=== PATIENT | female | born 1965 | race Caucasian/White ===

== ENCOUNTER 2016-11-08 12:47 | Emergency (ER) | payer BC, OTHER ==
[~2016-11-08] VITALS: Ht 154.9 cm; Wt 59.4 kg
[~2016-11-08 12:47] MED LIST: DIAZ2 PO
[2016-11-08 12:52] VITALS: BP 152/97; PULSE 88; RESP 16; TEMP 98.8; O2SAT 98
[2016-11-08] MEDS ORDERED: ZOLO25TA PO (13:13)
[2016-11-08] MEDS ORDERED: LORA-373 PO (13:13)
[2016-11-08] MEDS ORDERED: SODIUM CHLORIDE 0.9% FLUSH 10 ML FLUSH IV FLUSH PRN (13:30)
--- NOTE | 2016-11-08 13:38 | PD ---
HPI Chief Complaint: Abdominal Pain Time Seen by Provider: 13:07 Travel History International Travel<30 days: No Contact w/Intl Traveler<30days: No Traveled to known affect area: No History of Present Illness HPI Patient complains of pain in the right lower quadrant. Radiates toward the right low back. Duration 5 days. Severity is moderate. She's been playing a lot of golf lately and initially thought she strained a muscle in the abdominal wall but now thinks it may be something else. No vomiting or diarrhea or fever. Pain is not worse with eating. No vaginal bleeding or discharge or urinary complaints. No alleviating factors. PFSH Past Medical History Medical History: Denies Significant Hx Tetanus Vaccination: < 5 Years Influenza Vaccination: No ?: Not LMP: July Past Surgical History Cholecystectomy: Yes Gynecologic Surgery: Yes (Ectopic) Social History Alcohol Use: Yes (Occ.) Tobacco Use: No Substance Use: No Allergies-Medications (Allergen,Severity, Reaction): Coded Allergies: Codeine (Verified Allergy, Severe, PT STATES NOT ALLERGIC, 11/08/16) Reported Meds & Prescriptions Reported Meds & Active Scripts Active Reported Zoloft (Sertraline HCl) 25 Mg Tab 25 Mg PO DAILY Lorazepam 0.5 Mg Tab 0.5 Mg PO Q8H PRN Review of Systems General / Constitutional: No: Fever Eyes: No: Visual changes HENT: No: Headaches Cardiovascular: No: Chest Pain or Discomfort Respiratory: No: Shortness of Breath Gastrointestinal: Positive: Abdominal Pain Genitourinary: Positive: Pelvic Pain, No: Dysuria Musculoskeletal: No: Pain Skin: No Rash Neurologic: No: Weakness Psychiatric: No: Depression Endocrine: No: Polydipsia Hematologic/Lymphatic: No: Easy Bruising Physical Exam Narrative GENERAL: Well-nourished, well-developed patient with right lower quadrant pain . SKIN: Focused skin assessment reveals no rash and nodules. Skin is Warm and dry. HEAD: Atraumatic. Normocephalic. EYES: Pupils equal and round. No scleral icterus. No injection or drainage. ENT: No nasal bleeding or discharge. Mucous membranes pink and moist. NECK: Trachea midline. No JVD. CARDIOVASCULAR: Regular rate and rhythm. No murmur appreciated. RESPIRATORY: No accessory muscle use. Clear to auscultation. Breath sounds equal bilaterally. GASTROINTESTINAL: Abdomen soft, right lower quadrant has some tenderness without rebound or guarding, nondistended. Hepatic and splenic margins not palpable. MUSCULOSKELETAL: No obvious deformities. No clubbing. No cyanosis. No edema. NEUROLOGICAL: Awake and alert. No obvious cranial nerve deficits. Motor grossly within normal limits. Normal speech. PSYCHIATRIC: Appropriate mood and affect; insight and judgment normal. Data Data Last Documented VS Vital Signs Date Time Temp Pulse Resp B/P Pulse Ox O2 Delivery O2 Flow Rate FiO2 11/08/16 12:52 98.8 88 16 152/97 98 Orders Complete Blood Count With Diff (11/08/16 13:26) Comprehensive Metabolic Panel (11/08/16 13:26) Lipase (11/08/16 13:26) Prothrombin Time / Inr (Pt) (11/08/16 13:26) Act Partial Throm Time (Ptt) (11/08/16 13:26) Urinalysis - C+S If Indicated (11/08/16 13:26) Ct Abd/Pel W Iv Contrast(Rout) (11/08/16 13:26) Iv Access Insert/Monitor (11/08/16 13:26) NPO (11/08/16 13:26) Sodium Chloride 0.9% Flush (Ns Flush) (11/08/16 13:30) Ed Urine Pregnancytest Poc (11/08/16 13:26) Urine Culture (11/08/16 14:10) Iohexol 350 Inj (Omnipaque 350 Inj) (11/08/16 14:35) Labs Laboratory Tests Test 11/08/16 11/08/16 14:10 14:16 Urine Collection Type CLEAN CATCH Urine Color STRAW Urine Turbidity SLIGHT Urine pH 5.5 Urine Specific [place] 1.005 Urine Protein NEG mg/dL Urine Glucose (UA) NEG mg/dL Urine Ketones NEG mg/dL Urine Occult Blood TRACE Urine Nitrite NEG Urine Bilirubin NEG Urine Leukocyte Esterase LARGE Urine RBC 4-9 /hpf Urine WBC 50-99 /hpf Urine Squamous Epithelial 0-5 /hpf Cells Urine Bacteria FEW /hpf Microscopic Urinalysis Comment CULTURE INDICATED Urine Collection Time 14:10 White Blood Count 8.2 TH/MM3 Red Blood Count 4.53 MIL/MM3 Hemoglobin 13.7 GM/DL Hematocrit 42.0 % Mean Corpuscular Volume 92.7 FL Mean Corpuscular Hemoglobin 30.4 PG Mean Corpuscular Hemoglobin 32.7 % Concent Red Cell Distribution Width 12.9 % Platelet Count 271 TH/MM3 Mean Platelet Volume 7.8 FL Neutrophils (%) (Auto) 61.0 % Lymphocytes (%) (Auto) 30.3 % Monocytes (%) (Auto) 6.3 % Eosinophils (%) (Auto) 1.8 % Basophils (%) (Auto) 0.6 % Neutrophils # (Auto) 5.1 TH/MM3 Lymphocytes # (Auto) 2.5 TH/MM3 Monocytes # (Auto) 0.5 TH/MM3 Eosinophils # (Auto) 0.1 TH/MM3 Basophils # (Auto) 0.0 TH/MM3 CBC Comment DIFF FINAL Differential Comment Prothrombin Time 10.2 SEC Prothromb Time International 0.9 RATIO Ratio Activated Partial 23.4 SEC Thromboplast Time Sodium Level 140 MEQ/L Potassium Level 3.6 MEQ/L Chloride Level 104 MEQ/L Carbon Dioxide Level 28.4 MEQ/L Anion Gap 8 MEQ/L Blood Urea Nitrogen 16 MG/DL Creatinine 0.62 MG/DL Estimat Glomerular Filtration 102 ML/MIN Rate Random Glucose 86 MG/DL Calcium Level 8.9 MG/DL Total Bilirubin 0.2 MG/DL Aspartate Amino Transf 27 U/L (AST/SGOT) Alanine Aminotransferase 39 U/L (ALT/SGPT) Alkaline Phosphatase 77 U/L Total Protein 7.0 GM/DL Albumin 3.9 GM/DL Lipase 128 U/L [facility] Medical Decision Making Medical Screen Exam Complete: Yes Emergency Medical Condition: Yes Medical Record Reviewed: Yes Differential Diagnosis Appendicitis, colitis, muscle tear Narrative Course I have reviewed the patient's electronic medical record. IV placed CBC is normal Metabolic profile is normal LFTs are normal Lipase is normal Urinalysis is clean Urine is negative CT of abdomen and pelvis is normal Entirety of this extensive workup is negative. She may have torn abdominal wall muscle otherwise her abdominal pain is nonspecific but she stable for outpatient follow-up. Tramadol written and she has a primary care physician to follow up with Diagnosis Primary Impression: Abdominal pain Qualified Code: R10.31 - Right lower quadrant abdominal pain Additional Instructions: The patient was advised to follow up with their physician and return if they worsen. The patient was warned about potential sedation for the medications they will receive on prescription. Med/Other Pt SpecificInfo: Prescription(s) given Scripts Tramadol 50 Mg Tab50 Mg PO Q6H PRN (PAIN) #20 TAB Ref 0 Prov:Eulogio Rodriguez MD 11/08/16 Disposition: 01 DISCHARGE HOME Condition: Stable Eulogio Rodriguez MD November 08, 2016 13:38
[2016-11-08 14:25] LABS: AUTOMATED NEUTROPHIL # 5.1 TH/MM3 (1.8-7.7); BASOPHIL % 0.6 % (0.0-2.0); EOSINOPHIL # 0.1 TH/MM3 (0-0.4); EOSINOPHIL % 1.8 % (0.0-4.0); HEMO FLAGS DIFF FINAL; LYMPH % 30.3 % (9.0-44.0); LYMPHOCYTE # 2.5 TH/MM3 (1.0-4.8); MEAN CELL VOLUME 92.7 FL (80.0-100.0); MEAN CORPUSCULAR HEMOGLOBIN 30.4 PG (27.0-34.0); MEAN CORPUSCULAR HGB CONC 32.7 % (32.0-36.0); MONO % 6.3 % (0.0-8.0); PLATELET COUNT 271 TH/MM3 (150-450); RED BLOOD COUNT 4.53 MIL/MM3 (4.00-5.30); RED CELL DISTRIBUTION WIDTH 12.9 % (11.6-17.2); WHITE BLOOD COUNT 8.2 TH/MM3 (4.0-11.0)
[2016-11-08 14:26] LABS: BLOOD, URINE TRACE (NEG); GLUCOSE,URINE NEG (NEG); KETONE, URINE NEG (NEG); NITRITE,URINE NEG (NEG); PH, URINE 5.5 (5.0-8.5)
[2016-11-08 14:32] LABS: METHOD OF COLLECTION CLEAN CATCH; URINE COLOR STRAW (YELLW/STRAW)
[2016-11-08 14:33] LABS: BACTERIA, URINE FEW /hpf; COMMENT (UR) CULTURE INDICATED; CULTURE IF INDICATED CULTURE INDICATED; SQUAMOUS EPITHELIAL CELL URINE 0-5 /hpf (0-5)
[2016-11-08 14:35] LABS: CHLORIDE 104 MEQ/L (98-107); POTASSIUM 3.6 MEQ/L (3.5-5.1); SODIUM (NA) 140 MEQ/L (136-145)
[2016-11-08] MEDS ORDERED: IOHEXOL 350 MG/ML 10 ML VIAL (for RAD DIAG) IV ONE (14:35)
[2016-11-08 14:39] LABS: ANION GAP 8 MEQ/L (5-15); APTT (PATIENT) 23.4 SEC (24.3-30.1); BICARBONATE 28.4 MEQ/L (21.0-32.0); BLOOD UREA NITROGEN 16 MG/DL (7-18); INTERNATIONAL NORMALIZED RATIO 0.9 RATIO; PROTHROMBIN TIME - PATIENT 10.2 SEC (9.8-11.6)
[2016-11-08 14:42] LABS: ALT (GPT) 39 U/L (10-53); AST (GOT) 27 U/L (15-37); GLOMERULAR FILTRATION RATE 102 ML/MIN (>89)
[2016-11-08 14:43] LABS: TOTAL BILIRUBIN ADULT 0.2 MG/DL (0.2-1.0)
[2016-11-08 14:45] LABS: ALKALINE PHOSPHATASE 77 U/L (45-117)
--- NOTE | 2016-11-08 15:04 | RADHPO ---
EXAM DATE/TIME: 11/08/2016 14:25 [facility] COMPARISON: No previous studies available for comparison. INDICATIONS : Right lower quadrant pain. IV CONTRAST: 80 cc Omnipaque 350 (iohexol) IV ORAL CONTRAST: No oral contrast ingested. RADIATION DOSE: 6.57 CTDIvol (mGy) MEDICAL HISTORY : None SURGICAL HISTORY : Cholecystectomy. ENCOUNTER: Initial ACUITY: 4 - 6 days PAIN SCALE: 10/10 LOCATION: Right lower quadrant TECHNIQUE: Volumetric scanning of the abdomen and pelvis was performed. Using automated exposure control and ad justment of the mA and/or kV according to patient size, radiation dose was kept as low as reasonably achievable to obtain optimal diagnostic quality images. FINDINGS: LOWER LUNGS: The visualized lower lungs are clear. LIVER: Homogeneous density without lesion. There is mild dilation of the biliary tree. Cholecystectomy. SPLEEN: Normal size without lesion. PANCREAS: Within normal limits. KIDNEYS: Normal in size and shape. There is no mass, stone or hydronephrosis. ADRENAL GLANDS: Within normal limits. VASCULAR: There is no aortic aneurysm. BOWEL/MESENTERY: The stomach, small bowel, and colon demonstrate no acute abnormality. Normal appendix. There is no fr ee intraperitoneal air or fluid. ABDOMINAL WALL: Within normal limits. RETROPERITONEUM: There is no lymphadenopathy. BLADDER: No wall thickening or mass. REPRODUCTIVE: Within normal limits. INGUINAL: There is no lymphadenopathy or hernia. MUSCULOSKELETAL: Within normal limits for patient age. CONCLUSION: 1. No acute inflammatory process. 2. Normal appendix. 3. Status post cholecystectomy. Pipe Kowalski MD on November 08, 2016 at 14:59 Board Certified Radiologist. This report was verified electronically.
[2016-11-08 15:45] VITALS: BP 130/83; PULSE 75; RESP 16; O2SAT 100
[2016-11-08] MEDS ORDERED: TRAM50TA PO (15:48)
== END 2016-11-08 16:00 | disposition home or self-care (01) ==
LOC: PHED 12:47
DX: R10.31 Right lower quadrant pain (principal); R82.99 Other abnormal findings in urine; Z79.899 Other long term (current) drug therapy
CPT/HCPCS: 74177; 80053; 81001; 83690; 84703; 85025; 85610; 85730; 87086; 99284; Q9967

== ENCOUNTER 2017-07-30 01:27 | Observation (INO) | payer BC, OTHER ==
[~2017-07-30] VITALS: Ht 154.9 cm; Wt 56.5 kg
[2017-07-30] VITALS (10 sets, daily range): BP systolic 145–183; BP diastolic 90–100; PULSE 86–100; RESP 17–20; TEMP 98.2–98.3; O2SAT 97–100
[~2017-07-30 01:27] MED LIST changes: -DIAZ2 PO; +LORA0.5T PO; +TRAM50TA PO; +ZOLO25TA PO
[2017-07-30] MEDS ORDERED: SODIUM CHLORIDE 0.9% FLUSH 10 ML FLUSH IVF PRN (01:45)
[2017-07-30 01:50] LABS: AUTOMATED NEUTROPHIL # 6.2 TH/MM3 (1.8-7.7); BASOPHIL # 0.1 TH/MM3 (0-0.2); BASOPHIL % 0.8 % (0.0-2.0); EOSINOPHIL % 0.4 % (0.0-4.0); HEMATOCRIT 46.1 % (35.0-46.0); HEMOGLOBIN 15.2 GM/DL (11.6-15.3); LYMPH % 20.3 % (9.0-44.0); LYMPHOCYTE # 1.7 TH/MM3 (1.0-4.8); MEAN CELL VOLUME 93.3 FL (80.0-100.0); MEAN CORPUSCULAR HEMOGLOBIN 30.7 PG (27.0-34.0); MEAN CORPUSCULAR HGB CONC 32.9 % (32.0-36.0); MEAN PLATELET VOLUME 7.4 FL (7.0-11.0); MONO % 6.9 % (0.0-8.0); MONOCYTE # 0.6 TH/MM3 (0-0.9); NEUT % 71.6 % (16.0-70.0); PLATELET COUNT 353 TH/MM3 (150-450); RED BLOOD COUNT 4.94 MIL/MM3 (4.00-5.30); RED CELL DISTRIBUTION WIDTH 12.4 % (11.6-17.2); WHITE BLOOD COUNT 8.6 TH/MM3 (4.0-11.0)
[2017-07-30 02:00] LABS: CHLORIDE 102 MEQ/L (98-107); SODIUM (NA) 136 MEQ/L (136-145)
[2017-07-30] MEDS ORDERED: MECL-62 PO (02:03)
[2017-07-30] MEDS ORDERED: LORA2TAB7 PO (02:03)
[2017-07-30 02:04] LABS: ALBUMIN 4.5 GM/DL (3.4-5.0); BLOOD UREA NITROGEN 13 MG/DL (7-18); CALCIUM 9.3 MG/DL (8.5-10.1); GLUCOSE,RANDOM 107 MG/DL (74-106); LIPASE 124 U/L (73-393); PROTHROMBIN TIME - PATIENT 10.6 SEC (9.8-11.6)
--- NOTE | 2017-07-30 02:06 | PD ---
HPI Chief Complaint: Chest Pain Time Seen by Provider: 01:34 Travel History International Travel<30 days: No Contact w/Intl Traveler<30days: No Traveled to known affect area: No History of Present Illness HPI 51-year-old female presents to the emergency department from home by EMS transport for complaint of chest pain. Patient also complains of abdominal discomfort poor appetite nausea and feeling ill 3 days. Patient is diagnosed with hypertension but reportedly has been off of her blood pressure medication for approximately 2-3 months. Patient has been seen by her primary care provider in the antrum within the past month. Patient also has history of anxiety and is prescribed lorazepam but states the last time she took a dose lorazepam it made her feel anxious that she discontinued this medication as well. Patient has discontinued use of her benzodiazepine within the last 3-4 days. Patient is also prescribed phentermine for weight loss. Patient has been taking this intermittently. Patient states today she had poor oral intake and I was able to consume a small amount of soup. Patient states that she and her both like they might have the flu but she denies having any fever. Patient has had myalgias and arthralgias. Patient's had no vomiting no generalized abdominal pain and no diarrhea. Patient does not report any cough congestion rhinorrhea or sore throat. Patient states her chest pain is pressure -like and as if something is sitting on her chest. Patient reportedly received aspirin 162 mg prior to arrival to the emergency department administered by EMS personnel but states her symptoms worsened reportedly after they administered a one-time dose of nitroglycerin spray and no further nitroglycerin was administered. Patient denies any known history of dyslipidemia diabetes or tobaccoism. No prior history of coronary vessel disease. Patient denies any pleuritic chest pain or shortness of breath or wheezing. Patient also reports that she has recently taken [id number] "gelcap" medication that she cannot describe what type of medication this is whether or not as a cold preparation and anti-inflammatory or an antihistamine. Patient states she only took one tablet reportedly. Patient also complains of numbness and tingling of bilateral upper and lower extremities especially hands and feet and perioral paresthesias. No report of headache ataxia change in mentation change in speech or extremity weakness. [facility] Past Medical History Narrative Medical Hypertension anxiety carpal tunnel release ectopic occasional alcohol use; nursing notes reviewed Past Surgical History Cholecystectomy: Yes Gynecologic Surgery: Yes (Ectopic) Social History Alcohol Use: Yes (Occ.) Tobacco Use: No Substance Use: No Allergies-Medications (Allergen,Severity, Reaction): Coded Allergies: codeine (Unverified Allergy, Severe, PT STATES NOT ALLERGIC, 07/30/17) Reported Meds & Prescriptions Reported Meds & Active Scripts Active Reported Pantoprazole (Pantoprazole Sodium) 20 Mg Tab 20 Mg PO BID Omeprazole 20 Mg Tab 20 Mg PO DAILY Meclizine (Meclizine HCl) 25 Mg Tab 25 Mg PO DIRECTED PRN Lorazepam 2 Mg Tab 2 Mg PO BID Review of Systems Except as stated in HPI: all other systems reviewed are Neg General / Constitutional: Positive: Fever (subjective), No: Chills HENT: Positive: Congestion, No: Sore Throat Cardiovascular: Positive: Chest Pain or Discomfort, No: Diaphoresis Respiratory: No: Shortness of Breath Gastrointestinal: Positive: Nausea, No: Vomiting, Diarrhea, Abdominal Pain Genitourinary: No: Dysuria, Flank Pain Musculoskeletal: Positive: Myalgias, Arthralgias Skin: No Rash Neurologic: No: Weakness Psychiatric: No: Anxiety Hematologic/Lymphatic: No: Lymph Node Enlargement Physical Exam Narrative GENERAL: Well-developed mildly disheveled female in no respiratory distress appears mildly uncomfortable and anxious SKIN: Warm and dry. HEAD: Atraumatic. Normocephalic. EYES: Pupils equal and round. No scleral icterus. No injection or drainage. ENT: No nasal bleeding or discharge. Mucous membranes pink and moist. NECK: Trachea midline. No JVD. CARDIOVASCULAR: Regular rate and rhythm. RESPIRATORY: No accessory muscle use. Clear to auscultation. Breath sounds equal bilaterally. GASTROINTESTINAL: Abdomen soft, non-tender, nondistended. Hepatic and splenic margins not palpable. MUSCULOSKELETAL: Extremities without clubbing, cyanosis, or edema. No obvious deformities. Various staged bruising to the lower extremities. NEUROLOGICAL: Awake and alert. No obvious cranial nerve deficits. Motor grossly within normal limits. Five out of 5 muscle strength in the arms and legs. Normal speech. PSYCHIATRIC: Appropriate mood and affect; insight and judgment normal. Data Data Last Documented VS Vital Signs Date Time Temp Pulse Resp B/P (MAP) Pulse Ox O2 Delivery O2 Flow Rate FiO2 07/30/17 03:46 16 07/30/17 02:00 96 166/100 (122) 98 Room Air 180/92 (121) 07/30/17 01:30 2.00 07/30/17 01:30 98.2 Orders Orders Electrocardiogram (07/30/17 01:34) Ckmb (Isoenzyme) Profile (07/30/17 01:34) Complete Blood Count With Diff (07/30/17 01:34) Magnesium (Mg) (07/30/17 01:34) Prothrombin Time / Inr (Pt) (07/30/17 01:34) Act Partial Throm Time (Ptt) (07/30/17 01:34) Troponin I (07/30/17 01:34) Chest, Single Ap (07/30/17 01:34) Ecg Monitoring (07/30/17 01:34) Bilateral Bp Monitoring (07/30/17 01:34) Iv Access Insert/Monitor (07/30/17 01:34) Oximetry (07/30/17 01:34) Oxygen Administration (07/30/17 01:34) Sodium Chloride 0.9% Flush (Ns Flush) (07/30/17 01:45) Influenzae A/B Antigen (07/30/17 01:34) Urinalysis - C+S If Indicated (07/30/17 01:34) Drug Screen, Random Urine (07/30/17 01:34) Thyroid Stimulating Hormone (07/30/17 01:34) Comprehensive Metabolic Panel (07/30/17 01:34) Lipase (07/30/17 01:34) Ketorolac Inj (Toradol Inj) (07/30/17 03:00) Nitroglycerin Sl (Nitrostat Sl) (07/30/17 03:00) Sodium Chlor 0.9% 1000 Ml Inj (Ns 1000 M (07/30/17 03:00) Ondansetron Inj (Zofran Inj) (07/30/17 03:00) Nitroglycerin 2% Oint (Nitroglycerin 2% (07/30/17 03:30) Admit Order (Ed Use Only) (07/30/17 ) Filter Plant Operator / Telemetry PATTI.Q8H (07/30/17 04:11) Activity Oob With Assistance (07/30/17 04:11) Notify Dr: Other (07/30/17 04:11) Activity Bed Rest With Brp (07/30/17 04:11) Vital Signs (Adult) Q4H (07/30/17 04:11) Cardiac Rhythm .As Directed (07/30/17 04:11) Notify Dr: Other .PRN (07/30/17 04:11) Notify Parameters (07/30/17 04:11) Resp Oxygen Nasal Cannula (07/30/17 ) Ckmb (Isoenzyme) Profile (07/30/17 04:30) Ckmb (Isoenzyme) Profile (07/30/17 07:30) Troponin I (07/30/17 04:30) Troponin I (07/30/17 07:30) Electrocardiogram (07/30/17 04:30) Electrocardiogram (07/30/17 07:30) ^ Obtain (07/30/17 04:11) Sodium Chloride 0.9% Flush (Ns Flush) (07/30/17 04:15) Sodium Chloride 0.9% Flush (Ns Flush) (07/30/17 09:00) Aspirin (Aspirin) (07/30/17 09:00) Alprazolam (Xanax) (07/30/17 04:15) Filter Plant Operator / Telemetry PATTI.Q8H (07/30/17 04:11) Labs Laboratory Tests Test 07/30/17 01:35 07/30/17 02:05 White Blood Count 8.6 TH/MM3 Red Blood Count 4.94 MIL/MM3 Hemoglobin 15.2 GM/DL Hematocrit 46.1 % Mean Corpuscular Volume 93.3 FL Mean Corpuscular Hemoglobin 30.7 PG Mean Corpuscular Hemoglobin Concent 32.9 % Red Cell Distribution Width 12.4 % Platelet Count 353 TH/MM3 Mean Platelet Volume 7.4 FL Neutrophils (%) (Auto) 71.6 % Lymphocytes (%) (Auto) 20.3 % Monocytes (%) (Auto) 6.9 % Eosinophils (%) (Auto) 0.4 % Basophils (%) (Auto) 0.8 % Neutrophils # (Auto) 6.2 TH/MM3 Lymphocytes # (Auto) 1.7 TH/MM3 Monocytes # (Auto) 0.6 TH/MM3 Eosinophils # (Auto) 0.0 TH/MM3 Basophils # (Auto) 0.1 TH/MM3 CBC Comment DIFF FINAL Differential Comment Prothrombin Time 10.6 SEC Prothromb Time International Ratio 1.0 RATIO Activated Partial Thromboplast Time 25.4 SEC Blood Urea Nitrogen 13 MG/DL Creatinine 0.65 MG/DL Random Glucose 107 MG/DL Total Protein 8.2 GM/DL Albumin 4.5 GM/DL Calcium Level 9.3 MG/DL Magnesium Level 2.0 MG/DL Alkaline Phosphatase 89 U/L Aspartate Amino Transf (AST/SGOT) 16 U/L Alanine Aminotransferase (ALT/SGPT) 26 U/L Total Bilirubin 0.6 MG/DL Sodium Level 136 MEQ/L Potassium Level 3.5 MEQ/L Chloride Level 102 MEQ/L Carbon Dioxide Level 22.0 MEQ/L Anion Gap 12 MEQ/L Estimat Glomerular Filtration Rate 96 ML/MIN Total Creatine Kinase 88 U/L Troponin I LESS THAN 0.02 NG/ML Lipase 124 U/L Thyroid Stimulating Hormone 3rd Gen 1.310 uIU/ML Urine Color YELLOW Urine Turbidity SLIGHT Urine pH 6.0 Urine Specific [place] 1.021 Urine Protein TRACE mg/dL Urine Glucose (UA) NEG mg/dL Urine Ketones 40 mg/dL Urine Occult Blood NEG Urine Nitrite NEG Urine Bilirubin NEG Urine Leukocyte Esterase SMALL Urine WBC 3-5 /hpf Urine Squamous Epithelial Cells 6-8 /hpf Urine Amorphous Sediment FEW Urine Bacteria FEW /hpf Urine Hyaline Casts 3-5 /lpf Urine Mucus FEW /lpf Microscopic Urinalysis Comment CULT NOT INDICATED Urine Opiates Screen NEG Urine Barbiturates Screen NEG Urine Amphetamines Screen NEG Urine Benzodiazepines Screen NEG Urine Cocaine Screen NEG Urine Cannabinoids Screen NEG MDM Medical Decision Making Medical Screen Exam Complete: Yes Emergency Medical Condition: Yes Medical Record Reviewed: Yes Interpretation(s) EKG normal sinus rhythm rate [address] segment flattening no acute ST elevation or injury no ectopy Last Impressions Chest X-Ray 07/30/17 0134 Signed Impressions: Service Date/Time: Sunday, July 30, 2017 01:40 - CONCLUSION: No acute disease. Topher Owusu MD CBC & BMP Diagram 07/30/17 01:35 Total Protein 8.2, Albumin 4.5, Calcium Level 9.3, Magnesium Level 2.0, Alkaline Phosphatase 89, Aspartate Amino Transf (AST/SGOT) 16, Alanine Aminotransferase (ALT/SGPT) 26, Total Bilirubin 0.6 Vital Signs Date Time Temp Pulse Resp B/P (MAP) Pulse Ox O2 Delivery O2 Flow Rate FiO2 07/30/17 03:46 16 07/30/17 03:10 18 07/30/17 02:00 96 18 166/100 (122) 98 Room Air 180/92 (121) 07/30/17 02:00 96 18 166/100 (122) 98 Room Air 07/30/17 01:30 100 18 100 Nasal Cannula 2.00 07/30/17 01:30 98.2 100 18 183/99 (127) 100 07/30/17 01:27 100 Nasal Cannula 2.00 07/30/17 01:27 18 100 Nasal Cannula 2.00 Troponin I: Less than 0.02, not elevated UA: Squamous epithelial cells 6-8; culture not indicated Urine drug screen negative Differential Diagnosis Chest pain ACS myocardial infarction pneumonia adverse medication reaction gastritis cholecystitis pancreatitis viral syndrome influenza electrolyte disturbance arrhythmia Narrative Course Patient placed on site monitor with continuous pulse oximetry IV access obtained specimens collected and sent for resulting EKG performed which reveals no acute ST elevation or injury pattern; patient has already received aspirin and refusing nitroglycerin. Patient comfortable after nitroglycerin blood pressure improved Cardiac enzymes are found to be in normal range not elevated EKG shows no acute injury pattern change Patient will be admitted to chest pain center per protocol; case discussed with [facility] Physician Communication Physician Communication discussed with Dr Lynch for [facility] obs protocol Diagnosis Primary Impression: Chest pain Admitting Information Admitting Physician Requests: Observation Alee Pittman MD Jul 30, 2017 02:06
[2017-07-30 02:07] LABS: ALT (GPT) 26 U/L (10-53); AST (GOT) 16 U/L (15-37); CREATININE 0.65 MG/DL (0.50-1.00); GLOMERULAR FILTRATION RATE 96 ML/MIN (>89)
[2017-07-30 02:09] LABS: TOTAL BILIRUBIN ADULT 0.6 MG/DL (0.2-1.0); TOTAL PROTEIN 8.2 GM/DL (6.4-8.2)
[2017-07-30 02:10] LABS: ALKALINE PHOSPHATASE 89 U/L (45-117)
[2017-07-30 02:13] LABS: TROPONIN I LESS THAN 0.02 NG/ML (0.02-0.05)
[2017-07-30 02:19] LABS: BILIRUBIN, URINE NEG (NEG); BLOOD, URINE NEG (NEG); GLUCOSE,URINE NEG (NEG); KETONE, URINE 40 mg/dL (NEG); NITRITE,URINE NEG (NEG); URINE LEUKOCYTE ESTERASE SMALL (NEG)
--- NOTE | 2017-07-30 02:24 | RADRPT ---
EXAM DATE/TIME: 07/30/2017 01:40 [facility] COMPARISON: No previous studies available for comparison. INDICATIONS : Chest pain. MEDICAL HISTORY : None. SURGICAL HISTORY : Cholecystectomy. ENCOUNTER: Initial ACUITY: 1 day PAIN SCORE: 6/10 LOCATION: Bilateral chest FINDINGS: A single view of the chest demonstrates the lungs to be symmetrically aerated without evidence of mas s, infiltrate or effusion. The cardiomediastinal contours are unremarkable. Osseous structures are intact. CONCLUSION: No acute disease. Topher Owusu MD on July 30, 2017 at 2:21 Board Certified Radiologist. This report was verified electronically.
[2017-07-30 02:27] LABS: URINE COLOR YELLOW (YELLW/STRAW)
[2017-07-30 02:28] LABS: MUCUS URINE FEW /lpf (OCC)
[2017-07-30 02:30] LABS: AMORPHOUS SEDIMENT, URINE FEW; BACTERIA, URINE FEW /hpf
[2017-07-30] MEDS ORDERED: NITROGLYCERIN 0.4 MG SL 25 TABS/BTL SL ONE (03:00)
[2017-07-30] MEDS ORDERED: SODIUM CHLOR 0.9% 1000 ML INJ 1,000 ML IV SCH (03:00)
[2017-07-30] MEDS ORDERED: KETOROLAC TROMETHAMINE 30 MG/ML (IVP) VIAL IV PUSH ONE (03:00)
[2017-07-30] MEDS ORDERED: ONDANSETRON HCL 4 MG/2 ML VIAL IV PUSH ONE (03:00)
[2017-07-30] MEDS ORDERED: NITROGLYCERIN 2% OINT 1 GM PACKET TOPICAL ONE (03:30)
[2017-07-30] MEDS ORDERED: OMEP20TA93 PO (03:54)
[2017-07-30] MEDS ORDERED: PANT20TA2 PO (03:55)
[2017-07-30] MEDS ORDERED: ALPRAZolam 0.25 MG TAB PO PRN (04:15)
[2017-07-30] MEDS ORDERED: SODIUM CHLORIDE 0.9% FLUSH 10 ML FLUSH IV FLUSH PRN (04:15)
[2017-07-30 05:33] LABS: TROPONIN I LESS THAN 0.02 NG/ML (0.02-0.05)
[2017-07-30 08:17] LABS: TROPONIN I LESS THAN 0.02 NG/ML (0.02-0.05)
[2017-07-30] MEDS ORDERED: SODIUM CHLORIDE 0.9% FLUSH 10 ML FLUSH IV FLUSH SCH (09:00)
[2017-07-30] MEDS ORDERED: ASPIRIN 325 MG TAB PO SCH (09:00)
--- NOTE | 2017-07-30 09:32 | EKG ---
Date Performed: 07/30/2017 Time Performed: 01:48:37 PTAGE: 51 years EKG: Sinus rhythm POSSIBLE LEFT ATRIAL ENLARGEMENT ABNORMAL ECG NO PREVIOUS TRACING DOCTOR: Domenico Wilkinson Interpretating Date/Time 07/30/2017 09:29:58
[2017-07-30] MEDS ORDERED: amLODIPine BESYLATE 5 MG TAB PO SCH (11:30)
--- NOTE | 2017-07-30 11:33 | HHI.HP ---
[facility] Marco Gracia DO Admission Diagnosis chest pain; htn; h/o anxiety Diagnoses: (1) Chest pain Diagnosis: Principal Chief Complaint: Chest pain Travel History International Travel<30 Days: No Contact w/Intl Traveler <30 Da: No Traveled to Known Affected Are: No History of Present Illness Written by Eulogio Hathaway, acting as scribe for Dr. Lea on 07/30/17 at 11: 20. 51-year-old female with known history of anxiety, carpal tunnel, hypertension which is untreated who presented to the emergency department because of chest pain. Patient states that she hasn't been feeling right over the last 3 days, she has not been able to sleep, has not had any appetite, some mild nausea. Patient states that she was prescribed lorazepam for anxiety and she states that it did not help, it actually made her anxiety worse so she quit taking it approximately 3 days ago. Since then she's been having multiple anxious symptoms. Patient developed acute chest discomfort last evening at approximately 11:30 PM where she describes it as an elephant sitting on her chest with pain radiating up into the right side of her neck. Patient states that she has been having numbness into her hands and feet. She denied any nausea, vomiting, diaphoresis, shortness breath, dyspnea. Patient does indicate that she has had numbness in her hands and has had previous diagnosis of carpal tunnel in the past. Patient did try to take Advil liquid gel last evening without any significant relief. Because the pain did not resolve she came to emergency department for evaluation. Patient was given nitroglycerin, Toradol, Zofran in the emergency department. Patient did not insinuate if the pain resolved or not. She states that she is still experiencing the discomfort at this time. Patient is obviously very anxious with height and affect at this time. She has discontinued benzodiazepine approximately 3 days ago. She was also taken phentermine for weight loss. She states that she quit taking that one week ago. Patient does have increased risk factors for cardiovascular disease and is was recommended that patient be evaluated in the chest pain center. Review of Systems Cardiovascular: COMPLAINS OF: Chest pain Neurologic: COMPLAINS OF: Paresthesias Past Family Social History Past Medical History Hypertension, untreated Carpal tunnel syndrome Anxiety Past Surgical History Cholecystectomy Tonsillectomy Ectopic surgery Reported Medications Reported Meds & Active Scripts Active Reported Pantoprazole (Pantoprazole Sodium) 20 Mg Tab 20 Mg PO BID Omeprazole 20 Mg Tab 20 Mg PO DAILY Meclizine (Meclizine HCl) 25 Mg Tab 25 Mg PO DIRECTED PRN Lorazepam 2 Mg Tab 2 Mg PO BID Allergies: Coded Allergies: codeine (Unverified Allergy, Severe, PT STATES NOT ALLERGIC, 07/30/17) Family History Reviewed and significant for both mother and father having heart disease, myocardial infarction. Mother had her heart attack at age 50. Mother also with colon cancer. Social History Patient states that she quit smoking 1 week ago, prior to that she smoked just less than a pack a cigarettes a day off and on for over 20 years. Patient states that she drinks alcohol occasionally, usually a bottle wine. Denies any illicit drugs Physical Exam Vital Signs Vital Signs Date Time Temp Pulse Resp B/P (MAP) Pulse Ox O2 Delivery O2 Flow Rate FiO2 07/30/17 10:48 98.3 93 20 172/96 (121) 97 Room Air 07/30/17 08:53 94 18 177/98 (124) 99 Room Air 07/30/17 07:57 92 17 168/94 (118) 97 Room Air 07/30/17 07:39 98.3 99 18 177/100 (125) 97 Room Air 07/30/17 05:32 21 07/30/17 05:00 86 18 98 Room Air 07/30/17 05:00 87 18 145/90 (108) 98 Room Air 07/30/17 04:00 86 18 151/92 (111) 98 Room Air 07/30/17 03:46 16 07/30/17 03:10 18 07/30/17 03:00 92 18 174/99 (124) 98 Room Air 07/30/17 02:00 96 18 166/100 (122) 98 Room Air 180/92 (121) 07/30/17 02:00 96 18 166/100 (122) 98 Room Air 07/30/17 01:30 100 18 100 Nasal Cannula 2.00 07/30/17 01:30 98.2 100 18 183/99 (127) 100 07/30/17 01:27 100 Nasal Cannula 2.00 07/30/17 01:27 18 100 Nasal Cannula 2.00 Physical Exam GENERAL: Well-developed, well-nourished, alert and orientated HEENT: Head is normocephalic. Facial features are symmetric. Eyes: Pupils equal round reactive to light. Extraocular muscles are intact. Conjunctivae were clear. Oropharyngeal: Pharynx without any erythema edema. NECK: Supple without any masses. Trachea midline. no bruits are appreciated CARDIAC: Regular rhythm, regular rate. S1/S2 are heard. No murmurs LUNGS: Clear to auscultation bilaterally. No wheeze. No use of accessory muscles on inspiration or expiration. ABDOMEN: Soft, nontender. Nondistended. Bowel sounds heard in all 4 quadrants. Negative rebound, negative guarding EXTREMITIES: No edema, moves all extremities. NEUROLOGY: Patient obviously anxious with heightened affect. Muscle strength 5/ 5 in upper and lower extremities bilaterally. Laboratory Laboratory Tests Test 07/30/17 01:35 07/30/17 02:05 07/30/17 05:00 07/30/17 07:36 White Blood Count 8.6 Red Blood Count 4.94 Hemoglobin 15.2 Hematocrit 46.1 Mean Corpuscular Volume 93.3 Mean Corpuscular Hemoglobin 30.7 Mean Corpuscular Hemoglobin Concent 32.9 Red Cell Distribution Width 12.4 Platelet Count 353 Mean Platelet Volume 7.4 Neutrophils (%) (Auto) 71.6 Lymphocytes (%) (Auto) 20.3 Monocytes (%) (Auto) 6.9 Eosinophils (%) (Auto) 0.4 Basophils (%) (Auto) 0.8 Neutrophils # (Auto) 6.2 Lymphocytes # (Auto) 1.7 Monocytes # (Auto) 0.6 Eosinophils # (Auto) 0.0 Basophils # (Auto) 0.1 CBC Comment DIFF FINAL Differential Comment Prothrombin Time 10.6 Prothromb Time International Ratio 1.0 Activated Partial Thromboplast Time 25.4 Blood Urea Nitrogen 13 Creatinine 0.65 Random Glucose 107 Total Protein 8.2 Albumin 4.5 Calcium Level 9.3 Magnesium Level 2.0 Alkaline Phosphatase 89 Aspartate Amino Transf (AST/SGOT) 16 Alanine Aminotransferase (ALT/SGPT) 26 Total Bilirubin 0.6 Sodium Level 136 Potassium Level 3.5 Chloride Level 102 Carbon Dioxide Level 22.0 Anion Gap 12 Estimat Glomerular Filtration Rate 96 Total Creatine Kinase 88 75 77 Troponin I LESS THAN 0.02 LESS THAN 0.02 LESS THAN 0.02 Lipase 124 Thyroid Stimulating Hormone 3rd Gen 1.310 Urine Color YELLOW Urine Turbidity SLIGHT Urine pH 6.0 Urine Specific Rewey 1.021 Urine Protein TRACE Urine Glucose (UA) NEG Urine Ketones 40 Urine Occult Blood NEG Urine Nitrite NEG Urine Bilirubin NEG Urine Leukocyte Esterase SMALL Urine WBC 3-5 Urine Squamous Epithelial Cells 6-8 Urine Amorphous Sediment FEW Urine Bacteria FEW Urine Hyaline Casts 3-5 Urine Mucus FEW Microscopic Urinalysis Comment CULT NOT INDICATED Urine Opiates Screen NEG Urine Barbiturates Screen NEG Urine Amphetamines Screen NEG Urine Benzodiazepines Screen NEG Urine Cocaine Screen NEG Urine Cannabinoids Screen NEG Date/Time Source Procedure Growth Status 07/30/17 01:50 Nasal Washing Influenza Types A,B Antigen (JS) - Final NEGATIVE FOR FLU A AND B ANTIGEN.... Complete Result Diagram: 07/30/1713407/30/17134 Imaging Reported Meds & Active Scripts Active Reported Pantoprazole (Pantoprazole Sodium) 20 Mg Tab 20 Mg PO BID Omeprazole 20 Mg Tab 20 Mg PO DAILY Meclizine (Meclizine HCl) 25 Mg Tab 25 Mg PO DIRECTED PRN Lorazepam 2 Mg Tab 2 Mg PO BID Caprini VTE Risk Assessment Caprini VTE Risk Assessment: No/Low Risk (score <= 1) Caprini Risk Assessment Model Point Value = 1 Point Value = 2 Point Value = 3 Point Value = 5 Age 41-60 Minor surgery BMI > 25 kg/m2 Swollen legs Varicose veins or History of unexplained or recurrent spontaneous Oral contraceptives or hormone replacement Sepsis (< 1 month) Serious lung disease, including pneumonia (< 1 month) Abnormal pulmonary function Acute myocardial infarction Congestive heart failure (< 1 month) History of inflammatory bowel disease Medical patient at bed rest Age 61-74 Arthroscopic surgery Major open surgery (> 45 min) Laparoscopic surgery (> 45 min) Malignancy Confined to bed (> 72 hours) Immobilizing plaster cast Central venous access Age >= 75 History of VTE Family history of VTE Factor V Leiden Prothrombin [id number] Lupus anticoagulant Anticardiolipin antibodies Elevated serum homocysteine Heparin-induced thrombocytopenia Other congenital or acquired thrombophilia Stroke (< 1 month) Elective arthroplasty Hip, pelvis, or leg fracture Acute spinal cord injury (< 1 month) Prophylaxis Regimen Total Risk Factor Score Risk Level Prophylaxis Regimen 0-1 Low Early ambulation 2 Moderate Order ONE of the following: *Sequential Compression Device (SCD) *Heparin 5000 units SQ BID 3-4 Higher Order ONE of the following medications: *Heparin 5000 units SQ TID *Enoxaparin/Lovenox 40 mg SQ daily (WT < 150 kg, CrCl > 30 mL/min) *Enoxaparin/Lovenox 30 mg SQ daily (WT < 150 kg, CrCl > 10-29 mL/min) *Enoxaparin/Lovenox 30 mg SQ BID (WT < 150 kg, CrCl > 30 mL/min) AND/OR *Sequential Compression Device (SCD) 5 or more Highest Order ONE of the following medications: *Heparin 5000 units SQ TID (Preferred with Epidurals) *Enoxaparin/Lovenox 40 mg SQ daily (WT < 150 kg, CrCl > 30 mL/min) *Enoxaparin/Lovenox 30 mg SQ daily (WT < 150 kg, CrCl > 10-29 mL/min) *Enoxaparin/Lovenox 30 mg SQ BID (WT < 150 kg, CrCl > 30 mL/min) AND *Sequential Compression Device (SCD) Assessment and Plan Assessment and Plan Chest pain Patient with increased risk factors include age, hypertension, family history of heart disease, tobacco use Patient had been ruled out for acute coronary event with serial cardiac enzymes remain normal Serial EKGs were performed and reviewed by microsoft dynamics manager architect. No changes Patient underwent an exercise stress test and was negative for any ischemia Patient continued on aspirin, patient was given nitroglycerin in the emergency department Discussed with patient that she needs to follow up with her primary medical doctor, avoid phentermine, avoid tobacco use Hypertension, untreated, Started Norvasc 5 mg daily, with improvement of her BP Will provide patient with prescription and notified her to monitor her BP and follow up with her primary medical doctor Counseled patient on discontinuing phentermine Anxiety Patient started on Xanax as needed Patient will need follow-up with primary medical doctor for continued management Carpal tunnel Patient will need continued outpatient management with primary medical doctor DVT prevention low risk, early ambulation Discharge disposition Discharge home in stable condition, discussed with patient all workup and findings, patient does acknowledge understanding and is satisfied with results. Patient is in agreement with discharge home and outpatient follow up Activity: Ad katharine. Diet: Healthy heart diet Medications per medication reconciliation Follow-up with primary medical doctor in one week This note was transcribed by jovan Hathaway. I, Dr. Daisy Lea personally performed the history, physical exam, and medical decision making; and confirmed the accuracy of the information in the transcribed note. Authenticated by Dr. Daisy Lea on 07/30/17 at 11:20. Code Status Full code Eulogio Hathaway Jul 30, 2017 11:33 Daisy Lea MD Jul 30, 2017 17:36
[2017-07-30] MEDS ORDERED: AMLO5 PO (13:01)
--- NOTE | 2017-07-30 13:02 | HHI.DCPOC ---
Discharge Care Plan Diagnosis: (1) Chest pain Goals to Promote Your Health * To prevent worsening of your condition and complications * To maintain your health at the optimal level Directions to Meet Your Goals Take your medications as prescribed Follow your dietary instruction Follow activity as directed Keep your appointments as scheduled Take your immunizations and boosters as scheduled If your symptoms worsen call your PCP, if no PCP go to Urgent Care Center or Emergency Room Smoking is Dangerous to Your Health. Avoid second hand smoke Call the 24-hour hour crisis hotline for domestic abuse at Eulogio Hathaway Jul 30, 2017 13:01
--- NOTE | 2017-07-31 10:57 | TR ---
Date Performed: 07/30/2017 Time Performed: 12:33:14 DOCTOR: Obed Berrios DRUG LIST: CLINICAL HISTORY: REASON FOR TEST: REASON FOR ENDING: Completed Protocol OBSERVATION: Chest Pain: Limiting CONCLUSION: Patient tolerated SEAN protocol with Total Exercise Time=5:27 Maximum HM=394 % Targ et HR [id number]=342.0% Maximum WF=979/98, Testing stopped secondary to goals acheived. Patient reached target HR. During peak exercise, patient had quick upsloping ST segments. Patient appeared to be hav ing some left sided chest discomfort radiating to left neck, no signs of ischemis on monitor,HR and B P appropriate response to exercise, Recovery period, patient was asymptomatic, HR and BP returned to baseline COMMENTS: Conclusion: Normal treadmill exercise. No evidence of ischemia.
--- NOTE | 2017-07-31 14:08 | EKG ---
Date Performed: 07/30/2017 Time Performed: 07:28:46 PTAGE: 51 years EKG: Sinus rhythm POSSIBLE LEFT ATRIAL ENLARGEMENT MODERATE ST DEPRESSION ABNORMAL ECG PREVIOUS TRACING : 07/30/2017 04.36 Compared to previous tracing, ST changes are new. DOCTOR: Obed Berrios Interpretating Date/Time 07/31/2017 14:08:44
--- NOTE | 2017-07-31 14:10 | EKG ---
Date Performed: 07/30/2017 Time Performed: 04:36:28 PTAGE: 51 years EKG: Normal ECG PREVIOUS TRACING : 07/30/2017 01.48 Since previous tracing, no significant change noted DOCTOR: Obed Berrios Interpretating Date/Time 07/31/2017 14:10:20
== END 2017-07-30 14:05 | disposition home or self-care (01) ==
LOC: PHED 01:27 → PHEDA 04:13 → PH3B 13:00
PROVIDERS: ADMIT Hospitalist; ATTEND Hospitalist
DX: R07.89 Other chest pain (principal); I10 Essential (primary) hypertension; F41.9 Anxiety disorder, unspecified; G56.00 Carpal tunnel syndrome, unspecified upper limb; Z79.82 Long term (current) use of aspirin; Z87.891 Personal history of nicotine dependence; Z82.49 Family history of ischemic heart disease and other diseases of the circulatory system
CPT/HCPCS: 71045; 80053; 80307; 81001; 82550; 83690; 83735; 84443; 84484; 85025; 85610; 85730; 87804; 93005; 93017; 96374; 96375; 99285; G0378; J1885; J2405; J7030